=== PATIENT | female | born 1965 | race Caucasian/White ===

== ENCOUNTER 2016-05-20 09:59 | Emergency (ER) | payer OTHER ==
[2016-05-20 10:07] VITALS: O2SAT 97
--- NOTE | 2016-05-20 10:59 | EDPHY ---
Addendum entered and electronically signed by Kimberlyn Vaca NP 05/20/16 20: 17: Addendum to physical exam: right lower extremity with soft compartments. Addendum to differential diagnosis: I considered compartment syndrome though unlikely due to soft compartments. Original Note: H & P Stated Complaint: broke right leg Sunday, today calf/foot pain and foot discoloration Time Seen by Provider: 05/20/16 10:48 HPI/ROS: CHIEF COMPLAINT: Right calf pain HISTORY OF PRESENT ILLNESS: 50-year-old female presents emergency department complaining of right calf pain x2 days. Patient was skiing and they will 5 days ago and had a twisting fall, she sustained a proximal fibula fracture, she had a follow-up appointment with Dr. Sanchez and had an MRI 2 days ago of this knee to evaluate for a ligamentous injury. Yesterday and today she has had calf tenderness and she reports her great toe was discolored, pale and mildly blue upon awakening this morning. Patient has a history of factor 5 Leiden. She denies chest pain, shortness of breath. She is using crutches and is weight -bearing as tolerated on this leg. Patient has a follow-up appointment with Dr. Sanchez in 2 days for MRI review. REVIEW OF SYSTEMS: A comprehensive 10 point review of systems is otherwise negative aside from elements mentioned in the history of present illness. Source: Patient Exam Limitations: No limitations - Personal History LMP (Females 10-55): 15-21 Days Ago Current Tetanus/Diphtheria Vaccine: Unsure Current Tetanus Diphtheria and Acellular Pertussis (TDAP): Unsure - Medical/Surgical History Hx Asthma: No Hx Chronic Respiratory Disease: No Hx Diabetes: No Hx Cardiac Disease: No Hx Renal Disease: No Hx Cirrhosis: No Hx Alcoholism: No Hx HIV/AIDS: No Hx Splenectomy or Spleen Trauma: No Other PMH: factor 5, prolapsed disk - Social History Smoking Status: Never smoked - Physical Exam Exam: GEN: Awake, alert, oriented, no acute distress RESP: nl resp effort MSK: Right calf with diffuse tenderness to palpation, mild swelling, no cords, 2+ pedal pulses, cap refill less than 2 seconds, sensation intact to light touch SKIN: No break in skin Constitutional: Initial Vital Signs Temperature (C) 37 C 05/20/16 10:03 Heart Rate 76 05/20/16 10:03 Respiratory Rate 18 05/20/16 10:03 Blood Pressure 107/56 L 05/20/16 10:03 O2 Sat (%) 97 05/20/16 10:03 O2 Delivery Mode Room Air Allergies/Adverse Reactions: No Known Allergies Allergy (Verified 05/20/16 10:02) Home Medications: Medication Instructions Recorded Rivaroxaban [Xarelto 15mg (*)] 15 mg PO BID #42 tab 05/20/16 Medical Decision Making - Diagnostics Imaging: right lower extremity ultrasound- Impression: Below knee deep venous thrombosis of the posterior tibial and peroneal veins. Critical results relayed by Dr. Simpson to DOROTA Seals, on May 20, 2016 at 1337 hours. Dictated By: John Simpson MD ED Course/Re-evaluation: 50-year-old female with past medical history of factor 5 Leiden presents with right calf pain that started yesterday after a proximal fibula fracture she sustained 5 days ago. No chest pain or shortness of breath, no history blood clots. Ultrasound was obtained showing DVT below the knee in the peroneal and posterior tibialis. Patient was placed on Xarelto and agrees to follow up with her primary care doctor. She has been given Roberto Carlos hose. Baseline CBC, chemistry panel and INR have been drawn. Patient has been given return precautions for any chest pain, shortness of breath. I discussed with her the risks of being on an anticoagulant the dangers of a head strike. The patient and her are comfortable with this plan. Differential Diagnosis: Diagnosis considered but not limited to fracture, muscle sprain, DVT - Data Points Laboratory Results: Laboratory Results 05/20/16 14:05 05/20/16 05/20/16 14:06 14:05 WBC 9.05 10^3/uL (3.80-9.50) RBC 4.39 10^6/uL (4.18-5.33) Hgb 14.4 g/dL (12.6-16.3) POC Hgb 15.0 gm/dL (12.3-15.9) Hct 42.7 % (38.0-47.0) POC Hct 44 % (35.5-47.5) MCV 97.3 fL (81.5-99.8) MCH 32.8 pg (27.9-34.1) MCHC 33.7 g/dL (32.4-36.7) RDW 13.0 % (11.5-15.2) Plt Count 203 10^3/uL (150-400) MPV 10.7 fL (8.7-11.7) Neut % (Auto) 62.2 % (39.3-74.2) Lymph % (Auto) 21.1 % (15.0-45.0) [place] % (Auto) 7.1 % (4.5-13.0) Eos % (Auto) 8.6 H % (0.6-7.6) Baso % (Auto) 0.7 % (0.3-1.7) Nucleat RBC Rel Count 0.0 % (0.0-0.2) Absolute Neuts (auto) 5.63 10^3/uL (1.70-6.50) Absolute Lymphs (auto) 1.91 10^3/uL (1.00-3.00) Absolute Monos (auto) 0.64 10^3/uL (0.30-0.80) Absolute Eos (auto) 0.78 H 10^3/uL (0.03-0.40) Absolute Basos (auto) 0.06 10^3/uL (0.02-0.10) Absolute Nucleated RBC 0.00 10^3/uL (0-0.01) Immature Gran % 0.3 % (0.0-1.1) Immature Gran # 0.03 10^3/uL (0.00-0.10) PT 12.7 SEC (12.0-15.0) INR 0.96 (0.83-1.16) POC Sodium 142 mEq/L (134-144) POC Potassium 3.7 mEq/L (3.3-5.0) POC Chloride 106 mEq/L (96-108) POC BUN 11 mg/dL (7-23) POC Creatinine 0.7 mg/dL (0.6-1.2) POC Glucose 77 mg/dL (70-100) Point of Care Test Results: 05/20/16 14:06 POC Sodium 142 POC Potassium 3.7 POC Chloride 106 POC BUN 11 POC Creatinine 0.7 POC Glucose 77 Departure - Departure Disposition: Home, Routine, Self-Care Clinical Impression: Right leg DVT Condition: Good Instructions: Deep Venous Thrombosis (ED) Additional Instructions: Wear your compression stockings on both legs. Ambulate frequently. Take your medication as prescribed, 15 mg Xarelto twice daily for 21 days then increase to 20 mg once daily. You have been given a prescription for the 1st 21 day course. Follow-up with your primary care doctor in 7-10 days for re-evaluation , return to the emergency department for any chest pain, shortness of breath, discoloration of your foot, any worsening symptoms. Follow-up with as scheduled on Sunday to review your MRI. Referrals: Kathy Rivera MD [Primary Care Provider] - As per Instructions Prescriptions: Rivaroxaban [Xarelto 15mg (*)] 15 mg PO BID #42 tab
--- NOTE | 2016-05-20 13:41 | US ---
Venous Doppler Study of the Right Lower Extremity Clinical Indications: Right calf pain and swelling. Technique: High-frequency transducer was used for imaging and Doppler study of the deep veins of the leg from the upper calf to the groin. Pulsed Doppler and color Doppler were utilized, along with va rious maneuvers, to assess flow in the deep veins. Findings: The deep veins of the groin, thigh, are well displayed and are normally compressible. Dop pler flow patterns are unremarkable. There is clot below the knee in the posterior tibial veins and peroneal veins. There is normal compression of the greater saphenous vein without superficial thrombo sis. Impression: Below knee deep venous thrombosis of the posterior tibial and peroneal veins. Critical results relayed by Dr. Simpson to DOROTA Seals, on May 20, 2016 at 1337 hours.
[2016-05-20 14:17] VITALS: BP 106/62; PULSE 65; RESP 16; TEMP 98.6
[2016-05-20 14:20] LABS: % IMMATURE GRANULYOCYTES 0.3 % (0.0-1.1); ABSOLUTE IMMATURE GRANULOCYTES 0.03 10^3/uL (0.00-0.10); ADD DIFF? NO; ADD MORPH? NO; ADD SCAN? NO; ATYPICAL LYMPHOCYTE FLAG 0 (0-99); FRAGMENT RBC FLAG 0 (0-99); HEMATOCRIT 42.7 % (38.0-47.0); HEMOGLOBIN 14.4 g/dL (12.6-16.3); LEFT SHIFT FLG 0 (0-99); LIPEMIA HEMOLYSIS FLAG 80 (0-99); MEAN CELL HEMOGLOBIN 32.8 pg (27.9-34.1); MEAN CELL HEMOGLOBIN CONCENTR. 33.7 g/dL (32.4-36.7); MEAN CELL VOLUME 97.3 fL (81.5-99.8); MEAN PLATELET VOLUME 10.7 fL (8.7-11.7); PLATELET CLUMPS FLAG 20 (0-99); PLATELET COUNT 203 10^3/uL (150-400); RED BLOOD CELL COUNT 4.39 10^6/uL (4.18-5.33)
[2016-05-20 14:35] LABS: INR 0.96 (0.83-1.16); PROTIME(PATIENT) 12.7 SEC (12.0-15.0)
== END 2016-05-20 14:38 | disposition home or self-care (01) ==
DX: I82.401 Acute embolism and thrombosis of unspecified deep veins of right lower extremity (principal)
CPT/HCPCS: 82947-QW

== ENCOUNTER 2016-05-25 11:51 | Emergency (ER) | payer OTHER ==
--- NOTE | 2016-05-25 12:18 | CPEKG ---
Heart Rate: 67 RR Interval: 896 P-R Interval: 136 QRSD Interval: 80 QT Interval: 400 QTC Interval: 423 P Grafton: 84 QRS Grafton: 88 T Wave Grafton: 48 EKG Severity - NORMAL ECG - EKG Impression: SINUS RHYTHM Electronically Signed By: Ruslan Denise 27-May-2016 13:05:03
[2016-05-25 12:55] LABS: % IMMATURE GRANULYOCYTES 0.2 % (0.0-1.1); ABSOLUTE IMMATURE GRANULOCYTES 0.02 10^3/uL (0.00-0.10); ADD DIFF? NO; ADD MORPH? NO; ADD SCAN? NO; ATYPICAL LYMPHOCYTE FLAG 10 (0-99); FRAGMENT RBC FLAG 0 (0-99); HEMATOCRIT 46.6 % (38.0-47.0); HEMOGLOBIN 16.1 g/dL (12.6-16.3); LEFT SHIFT FLG 0 (0-99); LIPEMIA HEMOLYSIS FLAG 90 (0-99); MEAN CELL HEMOGLOBIN 33.3 pg (27.9-34.1); MEAN CELL HEMOGLOBIN CONCENTR. 34.5 g/dL (32.4-36.7); MEAN CELL VOLUME 96.5 fL (81.5-99.8); MEAN PLATELET VOLUME 10.3 fL (8.7-11.7); PLATELET CLUMPS FLAG 0 (0-99); PLATELET COUNT 275 10^3/uL (150-400); RED BLOOD CELL COUNT 4.83 10^6/uL (4.18-5.33); RED CELL DISTRIBUTION WIDTH 12.9 % (11.5-15.2)
[2016-05-25 13:10] LABS: APTT 34.8 SEC (23.0-38.0); INR 1.45 (0.83-1.16); PROTIME(PATIENT) 17.3 SEC (12.0-15.0)
[2016-05-25 13:16] LABS: ALANINE AMINOTRANSFERASE 24 IU/L (9-52); ALKALINE PHOSPHATASE 49 IU/L (38-126); ANION GAP 10 mEq/L (8-16); ASPARTATE AMINOTRANSFERASE 18 IU/L (14-46); BILIRUBIN,TOTAL 1.1 mg/dL (0.1-1.4); CALCIUM 9.4 mg/dL (8.5-10.4); CARBON DIOXIDE 27 mEq/l (22-31); CHLORIDE 104 mEq/L (97-110); CREATININE 0.8 mg/dL (0.6-1.0); GLOMERULAR FILTRATION RATE > 60; GLUCOSE 87 mg/dL (70-100); POTASSIUM 4.1 mEq/L (3.5-5.2); SODIUM 141 mEq/L (134-144); TOTAL PROTEIN 7.3 g/dL (6.3-8.2)
[2016-05-25] MEDS ORDERED: IOPAMIDOL (ISOVUE 370) 100 ML BTL IV ONE ×2 (13:35→20:09)
[2016-05-25 13:39] LABS: TROPONIN I < 0.012 ng/mL (0-0.034)
--- NOTE | 2016-05-25 13:55 | CT ---
CT Scan of the Head (Without Contrast) Clinical History: 50-year-old female with a history of migraine headaches and a recent DVT after a fi bular fracture with a factor V Leiden deficiency, complaining of left posterior cephalgia and some bl urred vision. The patient is currently being treated with Xarelto. Rule out acute intracranial hemorr felipa or other abnormality. Technique: Axial unenhanced images were obtained from the vertex through the skull base, reformatted at 5.00 and 1.25 mm increments, and reviewed in bone, brain, and subdural windows. Images were repro cessed in parasagittal and paracoronal planes. Dose reduction techniques were utilized. Comparison Study: None. Findings: The ventricles and basilar cisterns are normal in size, and symmetrical in configuration. T here is no midline shift, or other evidence of mass effect. There is no abnormal intra or extra-axial blood collection, or acute infarction identified. The paranasal sinuses and the mastoids are patent. The craniocervical junction, sella turcica, pineal gland, and the orbits are within normal limits. T he skull and skull base appear normal. Impression: There is no acute abnormality on this unenhanced CT evaluation. If there is further clinical concern regarding the patient's symptoms, MR imaging is suggested, if no t otherwise contraindicated. Results were discussed with Dr. Anne Marie Bonilla. A Document Only message has been documented for Anne Marie Bonilla MD in the [employer] Result system on 05/25/2016 13:50, Message ID [id number].
--- NOTE | 2016-05-25 14:29 | CT ---
Contrast-Enhanced CT Scan of the Chest (CT Pulmonary Artery Angiography) Clinical History: 50-year-old female with recent diagnosis of deep venous thrombosis and factor V Lei den deficiency, treated with Xarelto, complaining of some chest pressure. Rule out PE. TECHNIQUE: A timing bolus was used. The patient received 90 mL of IV Isovue-370 without complication, and a multidetector helical CT scan was obtained from the base of the neck inferiorly to the upper a bdomen, reformatted at 1.25 mm increments, and reviewed at a variety of window and level settings. Mu ltiplanar reconstructions are reviewed on the workstation. The DFOV is 33.8 cm. A dose reduction prot ocol was used. COMPARISON STUDY: Chest radiography, dated September 02, 2013. FINDINGS: CT Angiography: The main pulmonary artery, the main right and main left pulmonary arteries, and the f irst, second, and third order pulmonary artery segments are contrast-opacified, with no filling defec ts to suggest acute or chronic thromboemboli. There is no interventricular septal bowing. There is a mild amount of contrast refluxing into the intrahepatic IVC. The heart size is normal. There is no pe ricardial effusion. The ascending and descending thoracic aorta, and the visualized upper abdominal a aakash are normal. There is a normal anatomic arrangement of the great vessels off the aortic arch. Contrast-Enhanced CT Scan of the Chest: The lungs are clear. Specifically, there is no pulmonary nodu le, focal infiltrate, pleural effusion, peripheral interstitial edema, or pneumothorax. There are geronimo e tiny subcentimeter hypodensities in the thyroid gland. There is no axillary, intrathoracic, or uppe r abdominal adenopathy. There is mild diminished attenuation of the liver consistent with steatosis, and there is a catwalk appearance of the left hepatic lobe terminating near the spleen, a normal vari ant. The osseous structures are age-appropriate, with no aggressive lesion identified. IMPRESSION: Findings are within normal limits. Results were discussed with Dr. Anne Marie Bonilla. A Document Only message has been documented for Anne Marie Bonilla MD in the [employer] system on 05/25/2016 14:15, Message ID [id number].
--- NOTE | 2016-05-25 15:24 | UCPHY ---
H & P Patient Type: Established Chief Complaint Nursing Narrative: since 4am has had left sided headache and left eye decreased clarity. ALso c/o chest pressure and dizziness. Has fibula fx on Sunday and dvt in left calf dxd on Sunday and started on Xarelto. Cinncinnatti stroke scale negative. Time Seen by Provider: 05/25/16 12:10 HPI/ROS: 50-year-old female with history of factor 5 leiden, and recent history of a proximal fibular fracture followed by right calf DVT started on Xarelto on May 20, 2016 presents today with sudden onset of chest pressure and left parieto-occipital sharp stabbing headache 9/10 associated with decreased clarity of vision in her left eye at 4:00 a.m. today. She arrived in urgent care at noon and at that time her headache was markedly improved to about a 5/ 10. She had taken Tylenol at home. Her visual acuity was 20/15 in the left eye and 20/10 in the right eye. She has a history of migraines but states this headache was very different than her prior migraines. The only headache that she has had that was markedly worse was with her dura was punctured during a lumbar disc surgery many years ago. No nausea no vomiting no fevers no chills no diarrhea. No weakness in extremities and no neck pain. Review of systems As per HPI General no fever no chills no weakness HEENT no eye pain no eye discharge. No eye redness, no sore throat Respiratory no cough, no shortness of breath Cardiac positive chest pain, no peripheral edema GI no abdominal pain, no diarrhea, no constipation, no nausea, no vomiting no flank pain, no hematuria, no dysuria Musculoskeletal positive myalgias, no joint pain Heme no easy bruising, no easy bleeding Endo no polyuria, no polydipsia Skin no rashes, no pruritus Neuro no syncope, no dizziness, positive headaches Psych is no suicidal ideation, no homicidal ideation Source: Patient Exam Limitations: No limitations - Personal History LMP (Females 10-55): Unknown Current Tetanus/Diphtheria Vaccine: Yes - Medical/Surgical History Hx Asthma: No Hx Chronic Respiratory Disease: No Hx Diabetes: No Hx Cardiac Disease: No Hx Renal Disease: No Hx Cirrhosis: No Hx Alcoholism: No Hx HIV/AIDS: No Hx Splenectomy or Spleen Trauma: No Other PMH: Factor 5 liden. PCP Miguel DUDLEY. Ortho Daniel. Lumbar discectomy - Family History Significant Family History: No pertinent family hx - Social History Smoking Status: Never smoked Alcohol Use: Rarely Drug Use: None - Physical Exam Exam: 50-year-old female alert and oriented in no acute distress nontoxic appearance, afebrile Atraumatic normocephalic Extraocular movements intact, anicteric, pupils round reactive to light bilaterally Fundus sharp bilaterally Neck supple Lungs clear to auscultation bilaterally Chest nontender to palpation Abdomen normoactive bowel sounds soft Extremities no cyanosis clubbing or edema, wearing compression socks bilaterally Neuro alert and oriented no focal deficits noted Constitutional: Initial Vital Signs Heart Rate 72 05/25/16 12:12 Respiratory Rate 18 05/25/16 12:12 Blood Pressure 94/62 L 05/25/16 12:12 O2 Delivery Mode Room Air Allergies/Adverse Reactions: No Known Allergies Allergy (Verified 05/25/16 12:19) Home Medications: Medication Instructions Recorded Rivaroxaban [Xarelto 15mg (*)] 15 mg PO BID #42 tab 05/20/16 Bone Up 05/25/16 Tylenol 05/25/16 Medical Decision Making - Diagnostics EKG Interpretation: EKG normal sinus rhythm, no ectopic beats no ischemia done at 12:15 p.m. on May 25, 2016 Imaging: Chest CT scan negative for pulmonary embolus CT head without contrast negative for bleed ED Course/Re-evaluation: Patient seen and evaluated for chest pressure and left-sided headache with vision changes that began at 4:00 a.m. today recently started on Xarelto for DVT EKG normal sinus rhythm, lab sent all within normal limits, chest CT negative for PE, CT brain negative for bleed Discussed case with Dr. Medina from Neurology, he recommends to completely rule out the possibility of aneurysm and bleed the next step would be to do an MRI MRA. Contacted the emergency department at [facility] and talked to Dr. Lizarraga, discussed the case with him and the history and he is aware of the patient's need for MRI MRA. Impression/plan No known right calf DVT on Xarelto CT chest negative. Headache improving, patient to be transferred to [facility] for further imaging. Discussed this also in detail with patient and she is agreeable to this plan. - Data Points Laboratory Results: Laboratory Results 05/25/16 12:50 05/25/16 12:50 05/25/16 12:50 WBC 9.85 H 10^3/uL (3.80-9.50) RBC 4.83 10^6/uL (4.18-5.33) Hgb 16.1 g/dL (12.6-16.3) Hct 46.6 % (38.0-47.0) MCV 96.5 fL (81.5-99.8) MCH 33.3 pg (27.9-34.1) MCHC 34.5 g/dL (32.4-36.7) RDW 12.9 % (11.5-15.2) Plt Count 275 10^3/uL (150-400) MPV 10.3 fL (8.7-11.7) Neut % (Auto) 73.1 % (39.3-74.2) Lymph % (Auto) 16.1 % (15.0-45.0) [place] % (Auto) 5.7 % (4.5-13.0) Eos % (Auto) 4.4 % (0.6-7.6) Baso % (Auto) 0.5 % (0.3-1.7) Nucleat RBC Rel Count 0.0 % (0.0-0.2) Absolute Neuts (auto) 7.20 H 10^3/uL (1.70-6.50) Absolute Lymphs (auto) 1.59 10^3/uL (1.00-3.00) Absolute Monos (auto) 0.56 10^3/uL (0.30-0.80) Absolute Eos (auto) 0.43 H 10^3/uL (0.03-0.40) Absolute Basos (auto) 0.05 10^3/uL (0.02-0.10) Absolute Nucleated RBC 0.00 10^3/uL (0-0.01) Immature Gran % 0.2 % (0.0-1.1) Immature Gran # 0.02 10^3/uL (0.00-0.10) PT 17.3 H SEC (12.0-15.0) INR 1.45 H (0.83-1.16) APTT 34.8 SEC (23.0-38.0) Sodium 141 mEq/L (134-144) Potassium 4.1 mEq/L (3.5-5.2) Chloride 104 mEq/L (97-110) Carbon Dioxide 27 mEq/l (22-31) Anion Gap 10 mEq/L (8-16) BUN 16 mg/dL (7-23) Creatinine 0.8 mg/dL (0.6-1.0) Estimated GFR > 60 Glucose 87 mg/dL (70-100) Calcium 9.4 mg/dL (8.5-10.4) Total Bilirubin 1.1 mg/dL (0.1-1.4) AST 18 IU/L (14-46) ALT 24 IU/L (9-52) Alkaline Phosphatase 49 IU/L (38-126) Troponin I < 0.012 ng/mL (0-0.034) Total Protein 7.3 g/dL (6.3-8.2) Albumin 4.0 g/dL (3.5-5.0) Departure - Departure Disposition: [facility] Clinical Impression: Headache, Sensation of chest pressure, History of deep venous thrombosis, History of factor V Leiden mutation Condition: Good Additional Instructions: Go directly to [facility] emergency department for further imaging to rule out bleeding or vascular malformation in her brain. If the studies are normal keep her follow-up with your primary care physician tomorrow. - PQRS PQRS Measurement: na
[2016-05-25 16:37] VITALS: RESP 16
--- NOTE | 2016-05-25 17:24 | EDPHY ---
H & P Time Seen by Provider: 05/25/16 12:10 - Personal History LMP (Females 10-55): Unknown Current Tetanus/Diphtheria Vaccine: Yes - Medical/Surgical History Hx Asthma: No Hx Chronic Respiratory Disease: No Hx Diabetes: No Hx Cardiac Disease: No Hx Renal Disease: No Hx Cirrhosis: No Hx Alcoholism: No Hx HIV/AIDS: No Hx Splenectomy or Spleen Trauma: No Other PMH: Factor 5 ana. PCP Miguel DUDLEY. Ortho Daniel. Lumbar discectomy - Family History Significant Family History: No pertinent family hx - Social History Smoking Status: Never smoked Constitutional: Initial Vital Signs Heart Rate 72 05/25/16 12:12 Respiratory Rate 18 05/25/16 12:12 Blood Pressure 94/62 L 05/25/16 12:12 O2 Delivery Mode Room Air Allergies/Adverse Reactions: No Known Allergies Allergy (Verified 05/25/16 12:19) Home Medications: Medication Instructions Recorded Rivaroxaban [Xarelto 15mg (*)] 15 mg PO BID #42 tab 05/20/16 Bone Up 05/25/16 Tylenol 05/25/16 Medical Decision Making ED Course/Re-evaluation: CHIEF COMPLAINT: Headache HISTORY OF PRESENT ILLNESS: The patient is a 50 year old female, sent here from [facility] with headache. The neurologist, Dr. Medina, is requesting MRI, MRA, and MRV. According to [facility] chart: The patient has a "history of factor 5 leiden, and recent history of a proximal fibular fracture followed by right calf DVT started on Xarelto on May 20, 2016 presents today with sudden onset of chest pressure and left parieto-occipital sharp stabbing headache 9/10 associated with decreased clarity of vision in her left eye at 4:00 a.m. today. She arrived in urgent care at noon and at that time her headache was markedly improved to about a 5/10. She had taken Tylenol at home. Her visual acuity was 20/15 in the left eye and 20/10 in the right eye. She has a history of migraines but states this headache was very different than her prior migraines. The only headache that she has had that was markedly worse was with her dura was punctured during a lumbar disc surgery many years ago. No nausea no vomiting no fevers no chills no diarrhea. No weakness in extremities and no neck pain." REVIEW OF SYSTEMS: Constitutional: No fever, no chills or rigors, no recent illness. Eyes: No visual changes. ENT: No sore throat, no difficulty swallowing, no swollen glands. Respiratory: No cough, no shortness of breath. Cardiac: No chest pain. Gastrointestinal: No nausea, vomiting, or diarrhea, no abdominal pain, no black stools Genitourinary: No hematuria, no problems urinating. Musculoskeletal: No calf or leg pain, no neck or back pain, no leg or ankle swelling. Skin: No rashes. Neurological: No headache, no tingling in hands or feet, no muscle spasms. Psychiatric: No anxiety or depression. PHYSICAL EXAM: General Appearance: Alert, well hydrated, appropriate, and non-toxic appearing. Head: Atraumatic without scalp tenderness or obvious injury Eyes: Pupils equal, round, reactive to light and accommodation, EOMI, no trauma , no injection. Ears: Clear bilaterally, no perforation, normal landmarks Nose: Atraumatic, no rhinorrhea, clear. Throat: There is no erythema or exudates, no lesions, normal tonsils, mucus membranes moist. Neck: Supple, 2+ carotid upstroke, non-tender, no lymphadenopathy. Respiratory: No retractions, no distress, no wheezes, and no accessory muscle use. Lungs are clear to auscultation bilaterally. Cardiovascular: Regular rate and rhythm, no murmurs, rubs, or gallops. Bilateral carotid, radial, dorsalis pedis, and posterior tibial pulses intact. Good capillary refill all extremities. Gastrointestinal: Abdomen is soft, non-tender, non-distended, no masses, no rebound, no guarding, no peritoneal signs. Musculoskeletal: Normal active ROM of all extremities, atraumatic. Neurological: Alert, appropriate, and interactive. The patient has normal DTRs and non-focal cranial nerves, motor, sensory, and cerebellar exam. Skin: No rashes, good turgor, no nodules on palpation. DIAGNOSTICS/PROCEDURES/CRITACAL CARE TIME: Study: MRV of the brain. Indication: Headache. Results: Possible clot in right transverse sinus. The study was read by the radiologist, Dr. Estrada. I viewed the images myself on the PACS system. Study: MRA of the brain. Indication: Headache. Results: Possible clot in right transverse sinus. The study was read by the radiologist, Dr. Estrada. I viewed the images myself on the PACS system. Study: MRI of the brain. Indication: Headache. Results: Possible clot in right transverse sinus. The study was read by the radiologist, Dr. Estrada. I viewed the images myself on the PACS system. Study: CT of the head. Indication: Possible clot in transverse sinus. Results: clot in the transverse sinus, inferior sagittal sinus, encroaching upon the internal jugular vein The study was read by the radiologist, Dr. Ryan Estrada. I viewed the images myself on the PACS system. MEDICAL DECISION MAKING: The patient is a 50 year old female, sent here from [facility] [place] with headache. The neurologist, Dr. Medina, is requesting MRI, MRA, and MRV. MR shows possible clot in right transverse sinus. Confirming with CT head. This patient has significant venous clot in her brain. I spoke with Dr. Packer from [facility]. This patient will be transferred in case she is in need of interventional Radiology. She is already fully anticoagulated on Xarelto 15 mg twice daily for the last 3 days. In addition, the neurologist at [facility] does not believe she needs any additional anticoagulants at this time. She does not have any evidence of significant edema or bleeding in her brain. She is neurologically stable. Her vital signs are stable and she is not hypertensive. We will transfer her by ground ALS as my discussion with Dr. Packer we do not require chopper transport or critical care transport. I have explained everything to the patient her on the way and we will get her transferred to [facility] expediently. I spent a total of 30 minutes of critical care time including but not limited to obtaining history, performing a physical exam, ordering interventions and the bedside monitoring of those interventions, collecting and interpreting tests and discussion with consultants but not including time spent performing procedures. This is independent of PA or TUMBLING MACHINE OPERATOR time spent with the patient. - Data Points Laboratory Results: Laboratory Results 05/25/16 12:50 05/25/16 12:50 05/25/16 12:50 WBC 9.85 H 10^3/uL (3.80-9.50) RBC 4.83 10^6/uL (4.18-5.33) Hgb 16.1 g/dL (12.6-16.3) Hct 46.6 % (38.0-47.0) MCV 96.5 fL (81.5-99.8) MCH 33.3 pg (27.9-34.1) MCHC 34.5 g/dL (32.4-36.7) RDW 12.9 % (11.5-15.2) Plt Count 275 10^3/uL (150-400) MPV 10.3 fL (8.7-11.7) Neut % (Auto) 73.1 % (39.3-74.2) Lymph % (Auto) 16.1 % (15.0-45.0) [place] % (Auto) 5.7 % (4.5-13.0) Eos % (Auto) 4.4 % (0.6-7.6) Baso % (Auto) 0.5 % (0.3-1.7) Nucleat RBC Rel Count 0.0 % (0.0-0.2) Absolute Neuts (auto) 7.20 H 10^3/uL (1.70-6.50) Absolute Lymphs (auto) 1.59 10^3/uL (1.00-3.00) Absolute Monos (auto) 0.56 10^3/uL (0.30-0.80) Absolute Eos (auto) 0.43 H 10^3/uL (0.03-0.40) Absolute Basos (auto) 0.05 10^3/uL (0.02-0.10) Absolute Nucleated RBC 0.00 10^3/uL (0-0.01) Immature Gran % 0.2 % (0.0-1.1) Immature Gran # 0.02 10^3/uL (0.00-0.10) PT 17.3 H SEC (12.0-15.0) INR 1.45 H (0.83-1.16) APTT 34.8 SEC (23.0-38.0) Sodium 141 mEq/L (134-144) Potassium 4.1 mEq/L (3.5-5.2) Chloride 104 mEq/L (97-110) Carbon Dioxide 27 mEq/l (22-31) Anion Gap 10 mEq/L (8-16) BUN 16 mg/dL (7-23) Creatinine 0.8 mg/dL (0.6-1.0) Estimated GFR > 60 Glucose 87 mg/dL (70-100) Calcium 9.4 mg/dL (8.5-10.4) Total Bilirubin 1.1 mg/dL (0.1-1.4) AST 18 IU/L (14-46) ALT 24 IU/L (9-52) Alkaline Phosphatase 49 IU/L (38-126) Troponin I < 0.012 ng/mL (0-0.034) Total Protein 7.3 g/dL (6.3-8.2) Albumin 4.0 g/dL (3.5-5.0) Medications Given: Discontinued Medications Sodium Chloride (Ns) 1,000 mls @ 0 mls/hr IV ONCE ONE PRN Reason: Wide Open Stop: 05/25/16 21:02 Last Admin: 05/25/16 20:40 Dose: 1,000 mls Departure - Departure Disposition: [facility] Clinical Impression: Chest pressure, Hx of deep venous thrombosis, Hx of factor V Leiden mutation, Thrombosis transverse sinus Headache Qualifiers: Headache type: other vascular headache Qualifier Code: (G44.1) Vascular headache, not elsewhere classified Condition: Serious Additional Instructions: Go directly to [facility] emergency department for further imaging to rule out bleeding or vascular malformation in her brain. If the studies are normal keep her follow-up with your primary care physician tomorrow. Referrals: Kathy Rivera MD [Primary Care Provider] - As per Instructions Report Scribed for: Gilles Lizarraga Report Scribed by: Rhoda Denson Date of Report: 05/25/16 Time of Report: 17:27
[2016-05-25] MEDS ORDERED: GADOBUTROL 10 ML VIAL IVP ONE (18:53)
--- NOTE | 2016-05-25 19:41 | MR ---
MRI of the Brain (Without and with contrast) History: Severe headache. Comparison: Head CT without contrast earlier (normal) Technique: T1-weighted images were acquired axially and sagittally from the foramen magnum to the ve rtex. Axial fast inversion recovery, fast T2-weighted, GRE and diffusion-weighted axial images were obtained without contrast. Sagittal axial and coronal T1-weighted images are obtained after contrast enhancement (6 mL gadolinium Gadavist). Findings: The ventricles, cisterns, and sulci are normal without atrophy, hydrocephalus, midline rosie ft, herniation, or epidural/subdural hematomas. No intracranial hemorrhage or masses. Diffusion-weigh regis sequence demonstrates no acute infarct. Cerebellar tonsils are in normal position. Pituitary glan d is normal in size. There is a linear filling defect in the right transverse sinus that may represen t a linear thrombus versus a flow artifact. Normal contrast enhancement of the superior sagittal sinu s, basilar artery, and bilateral internal carotid arteries indicating patency. The distal right verte bral artery is dominant and patent. Paranasal sinuses and mastoid air cells are clear. There is asymm etrical aeration of the anterior clinoid processes, right larger than left. Impression: Difficult to exclude a nonocclusive thrombus of the right transverse sinus. Consider CT w ith IV contrast for further evaluation. Results discussed with Dr. Lizarraga.
--- NOTE | 2016-05-25 19:54 | MR ---
MRI [facility]ogram [facility] History: Evaluate for aneurysm. Severe headache. R29.818 Neurological changes strongly suggesting intracerebral aneurysm. Technique: 3-D time of flight MR angiography performed in the direct axial acquisition plane. Images are transferred to the independent workstation where multiplanar MIP and 3 dimensional reconstruction s are obtained and reviewed by me. Findings: The distal right vertebral artery is dominant and feeds a normal basilar artery. There is a n infundibulum of the basilar tip with normal origins of both posterior cerebral arteries and superio r cerebellar arteries from the infundibulum. There is a duplex left superior cerebellar artery. Both posterior and first cerebellar arteries have their origin off the right vertebral artery. The origins of both anterior cerebellar arteries are normal, the left being better seen on the right. Both distal internal carotid arteries are normal. The left A1 is dominant and is the main feeder of b oth anterior cerebral arteries via a large but expected anterior cerebral artery. The right A1 is con genitally smaller. The M1, M2 and middle cerebral trifurcations look normal. There is a large right p atent posterior communicating artery. No left posterior communicating artery is identified. I do not see any obvious evidence for vasculitis or evidence for aneurysm. There is no evidence of an abnormal intercranial vascular malformation. Impression: No source for headache identified. Please see the MRI venogram report. Results of all studies discussed with Dr. Lizarraga at 7:51 PM.
--- NOTE | 2016-05-25 20:10 | MR ---
MR VENOGRAM OF THE BRAIN History: Severe headache Technique: [id number] and postcontrast MR venography. Findings: There is decreased flow in the right transverse sinus compared to the left transverse sinus . The superior sagittal sinus, straight sinus and both internal cerebral veins are patent. Impression: Highly suspicious for right transverse sinus thrombosis. Consider correlation with CT aft er IV contrast, and a 90 second delay.
--- NOTE | 2016-05-25 20:52 | CT ---
CT Head Venogram HISTORY: Possible right transverse sinus thrombosis seen on MRI. Patient has a clotting disorder. TECHNIQUE: Post contrast CT after an appropriate delay through the head after 70 mL of Isovue-370 was injected intravenously without complication. Comparison: MRV and MRI of the brain earlier in the evening Findings: There is a subtotal thrombus in the right transverse sinus that extends into the right sigm oid sinus and then into the very proximal right internal jugular vein. The superior sagittal sinus an d left transverse sinus are normal as is the left sigmoid sinus and proximal internal jugular vein. T he straight sinus, internal cerebral veins and both basilar veins of [place] are patent. I do not i dentify the inferior sagittal sinus and thrombus could possibly be present. Impression: Right transverse and sigmoid sinus partial thrombosis. Possible inferior sagittal sinus t hrombosis, subtly suggested on the MRI in retrospect. Results discussed with Dr. Lizarraga at 8:50 PM.
[2016-05-25] MEDS ORDERED: NS 1,000 ML IV ONE (21:01)
[2016-05-25 22:32] VITALS: O2SAT 98
[2016-05-25 22:33] VITALS: BP 103/73; PULSE 68; TEMP 98.1
== END 2016-05-25 22:33 | disposition short-term general hospital (02) ==
LOC: CED 11:51
DX: G44.1 Vascular headache, not elsewhere classified (principal); R07.89 Other chest pain; Z86.718 Personal history of other venous thrombosis and embolism; Z83.2 Family history of diseases of the blood and blood-forming organs and certain disorders involving the immune mechanism; Z79.01 Long term (current) use of anticoagulants
CPT/HCPCS: 70450-PO; 71275-PO; 80053-PO; 84484-PO; 85025-PO; 85610-PO; 85730-PO; A9585; G0463-PO; Q9967

== ENCOUNTER 2016-08-26 11:16 | Emergency (ER) | payer OTHER ==
[2016-08-26 11:33] VITALS: RESP 18
--- NOTE | 2016-08-26 11:44 | CPEKG ---
Heart Rate: 71 RR Interval: 845 P-R Interval: 144 QRSD Interval: 76 QT Interval: 408 QTC Interval: 444 P [place]: 57 QRS [place]: 84 T Wave [place]: 47 EKG Severity - NORMAL ECG - EKG Impression: SINUS RHYTHM Electronically Signed By: Arlette Elliott 26-Aug-2016 13:35:13
--- NOTE | 2016-08-26 11:50 | UCPHY ---
H & P Patient Type: Established Chief Complaint Nursing Narrative: left sided chest pain starting this morning no trauma Time Seen by Provider: 08/26/16 11:28 HPI/ROS: CHIEF COMPLAINT: Chest pain History by patient HISTORY OF PRESENT ILLNESS: 50-year-old woman with Factor 5 Leiden deficiency and another clotting disorder and a history of recent DVT in May who was put on Xarelto for this which was then complicated by a venous sinus thrombosis in her brain so she was switched to Coumadin presents today with acute onset of pleuritic chest pain which began when she woke up this morning. She describes the pain as mild, mostly left-sided and worse when she takes a deep breath in or cough. She was able to walk this morning without any trouble but the pain persisted and when she spoke with her fire crew worker he recommended she come in to be evaluated. She denies any leg pain or swelling but states he has not had any trouble with her legs since the DVT in May. She has not taken anything for pain. Her INR was checked last week and was therapeutic at 2.5. She has had no recent fever, chills, nausea vomiting URI symptoms sore throat or abdominal pain. REVIEW OF SYSTEMS: As in HPI, and all other systems reviewed and are negative - Personal History Current Tetanus/Diphtheria Vaccine: Unsure Current Tetanus Diphtheria and Acellular Pertussis (TDAP): Unsure - Medical/Surgical History Hx Asthma: No Hx Chronic Respiratory Disease: No Hx Diabetes: No Hx Cardiac Disease: No Hx Renal Disease: No Hx Cirrhosis: No Hx Alcoholism: No Hx HIV/AIDS: No Hx Splenectomy or Spleen Trauma: No Other PMH: Factor 5 liden. Lumbar discectomy. DVT that thrombosed. shingles - Family History Significant Family History: Other (Clotting disorders) - Social History Smoking Status: Never smoked - Physical Exam Exam: General Appearance: Alert, comfortable appearing, speaking full sentences. Eyes: Pupils equal and round no pallor or injection. ENT, Mouth: Mucous membranes moist. Respiratory: Normal, effort, There are no retractions, lungs are clear to auscultation. Cardiovascular: Regular rate and rhythm. No chest wall tenderness Gastrointestinal: Abdomen is soft and nontender, no masses, bowel sounds normal. Neurological: Awake, alert and oriented x 3, no pronator drift, normal gait, no pronator drift Skin: Warm and dry, no rashes. Musculoskeletal: Neck is supple nontender. Extremities are symmetrical, full range of motion. Psychiatric: Patient has normal affect, there is no agitation. Constitutional: Initial Vital Signs Temperature (C) 37 C 08/26/16 11:30 Heart Rate 61 08/26/16 11:30 Respiratory Rate 18 08/26/16 11:30 Blood Pressure 134/74 H 08/26/16 11:30 O2 Sat (%) 98 08/26/16 11:30 O2 Delivery Mode Room Air Allergies/Adverse Reactions: No Known Allergies Allergy (Verified 08/26/16 11:27) Home Medications: Medication Instructions Recorded Tylenol 05/25/16 Coumadin 08/26/16 Medical Decision Making - Diagnostics Imaging Results: Imaging Impressions Chest/Thorax CTA 08/26/16 11:48 Impression: 1. No evidence of pulmonary embolic disease. 2. See above report for additional findings. Results called and discussed with Arlette Elliott MD on 08/26/2016 at 13:20 Imaging: Discussed imaging studies w/ carton maker Radiologist ED Course/Re-evaluation: 50-year-old woman with history of factor 5 Leiden and prior DVT and venous sinus thrombosis currently on Coumadin presents with pleuritic chest pain. ECG was done which showed normal sinus rhythm with normal axis, normal intervals and no ST segment abnormalities. Although the patient's INR was therapeutic, given her prior history of clotting on Xarelto I did not feel we could exclude pulmonary embolism and therefore CT angio of the test was obtained. This showed no evidence of pulmonary embolism per the radiologist. Patient was hemodynamically stable, there is no respiratory distress or hypoxia. This point the cause of her pleuritic chest pain is unclear but there is no evidence of any significant cardiac or pulmonary cause. Patient was given reassurance and she will follow up with primary care physician fire crew worker as needed. - Data Points Laboratory Results: Laboratory Results 08/26/16 11:40 08/26/16 11:40 08/26/16 08/26/16 08/26/16 11:40 11:40 11:40 WBC 7.57 10^3/uL 10^3/uL (3.80-9.50) RBC 4.74 10^6/uL 10^6/uL (4.18-5.33) Hgb 15.5 g/dL g/dL (12.6-16.3) Hct 45.3 % % (38.0-47.0) MCV 95.6 fL fL (81.5-99.8) MCH 32.7 pg pg (27.9-34.1) MCHC 34.2 g/dL g/dL (32.4-36.7) RDW 12.8 % % (11.5-15.2) Plt Count 259 10^3/uL 10^3/uL (150-400) MPV 10.4 fL fL (8.7-11.7) Neut % (Auto) 61.6 % % (39.3-74.2) Lymph % (Auto) 26.6 % % (15.0-45.0) [place] % (Auto) 7.8 % % (4.5-13.0) Eos % (Auto) 3.2 % % (0.6-7.6) Baso % (Auto) 0.5 % % (0.3-1.7) Nucleat RBC Rel Count 0.0 % % (0.0-0.2) Absolute Neuts (auto) 4.67 10^3/uL 10^3/uL (1.70-6.50) Absolute Lymphs (auto) 2.01 10^3/uL 10^3/uL (1.00-3.00) Absolute Monos (auto) 0.59 10^3/uL 10^3/uL (0.30-0.80) Absolute Eos (auto) 0.24 10^3/uL 10^3/uL (0.03-0.40) Absolute Basos (auto) 0.04 10^3/uL 10^3/uL (0.02-0.10) Absolute Nucleated RBC 0.00 10^3/uL 10^3/uL (0-0.01) Immature Gran % 0.3 % % (0.0-1.1) Immature Gran # 0.02 10^3/uL 10^3/uL (0.00-0.10) PT 24.4 SEC H SEC (12.0-15.0) INR 2.22 H (0.83-1.16) APTT 33.7 SEC SEC (23.0-38.0) Sodium 142 mEq/L mEq/L (134-144) Potassium 4.8 mEq/L mEq/L (3.5-5.2) Chloride 103 mEq/L mEq/L (97-110) Carbon Dioxide 25 mEq/l mEq/l (22-31) Anion Gap 14 mEq/L mEq/L (8-16) BUN 16 mg/dL mg/dL (7-23) Creatinine 0.6 mg/dL mg/dL (0.6-1.0) Estimated GFR > 60 Glucose 77 mg/dL mg/dL (70-100) Calcium 9.5 mg/dL mg/dL (8.5-10.4) Departure - Departure Disposition: Home, Routine, Self-Care Clinical Impression: Pleuritic chest pain Condition: Good Instructions: Pleurisy (ED) Additional Instructions: You were seen by Dr. Arlette Elliott today. Return for any worsening or new concerns. Your CT scan did not show any evidence of blood clot. Please continue your Coumadin and follow up with your fire crew worker as scheduled. Referrals: Kathy Rivera MD [Primary Care Provider] - As per Instructions - PQRS PQRS Measurement: NA
[2016-08-26 11:53] LABS: % IMMATURE GRANULYOCYTES 0.3 % (0.0-1.1); ABSOLUTE IMMATURE GRANULOCYTES 0.02 10^3/uL (0.00-0.10); ADD DIFF? NO; ADD MORPH? NO; ADD SCAN? NO; ATYPICAL LYMPHOCYTE FLAG 10 (0-99); FRAGMENT RBC FLAG 0 (0-99); HEMATOCRIT 45.3 % (38.0-47.0); HEMOGLOBIN 15.5 g/dL (12.6-16.3); LEFT SHIFT FLG 0 (0-99); LIPEMIA HEMOLYSIS FLAG 90 (0-99); MEAN CELL HEMOGLOBIN 32.7 pg (27.9-34.1); MEAN CELL HEMOGLOBIN CONCENTR. 34.2 g/dL (32.4-36.7); MEAN CELL VOLUME 95.6 fL (81.5-99.8); MEAN PLATELET VOLUME 10.4 fL (8.7-11.7); PLATELET CLUMPS FLAG 0 (0-99); PLATELET COUNT 259 10^3/uL (150-400); RED BLOOD CELL COUNT 4.74 10^6/uL (4.18-5.33); RED CELL DISTRIBUTION WIDTH 12.8 % (11.5-15.2)
[2016-08-26] MEDS ORDERED: IOPAMIDOL (ISOVUE 370) 100 ML BTL IV ONE (11:54)
[2016-08-26 12:07] LABS: INR 2.22 (0.83-1.16); PROTIME(PATIENT) 24.4 SEC (12.0-15.0)
[2016-08-26 12:08] LABS: APTT 33.7 SEC (23.0-38.0)
[2016-08-26 12:09] LABS: ANION GAP 14 mEq/L (8-16); CALCIUM 9.5 mg/dL (8.5-10.4); CARBON DIOXIDE 25 mEq/l (22-31); CHLORIDE 103 mEq/L (97-110); CREATININE 0.6 mg/dL (0.6-1.0); GLOMERULAR FILTRATION RATE > 60; GLUCOSE 77 mg/dL (70-100); POTASSIUM 4.8 mEq/L (3.5-5.2); SODIUM 142 mEq/L (134-144)
[2016-08-26 13:23] VITALS: BP 122/67; PULSE 82; TEMP 98.2; O2SAT 96
== END 2016-08-26 13:36 | disposition home or self-care (01) ==
LOC: CED 11:16
DX: R07.81 Pleurodynia (principal)
CPT/HCPCS: 71275-PO; 80048-PO; 85025-PO; 85610-PO; 85730-PO; 93010-PO; 99215-PO; G0463-PO; Q9967

== ENCOUNTER → 2017-05-16 | Outpatient (CLI) | payer OTHER | LOC: FIMAGING 09:38 | PROVIDERS: ATTEND Obstetrics & Gynecology | DX: Z12.31 Encounter for screening mammogram for malignant neoplasm of breast (principal) ==

== ENCOUNTER → 2017-05-30 | Outpatient (CLI) | payer OTHER | LOC: FIMAGING 09:09 | PROVIDERS: ATTEND Obstetrics & Gynecology | DX: R92.8 Other abnormal and inconclusive findings on diagnostic imaging of breast (principal) ==